=== PATIENT | male | born 1995 | race Caucasian/White ===

== ENCOUNTER 2023-12-11 18:23 | Emergency (ER) | payer SELFPAY ==
[2023-12-11 20:16] VITALS: PULSE 68; RESP 18; TEMP 98.5; O2SAT 97
[2023-12-11] MEDS: MOTRIN 600 MG PO ONE (20:38)
[2023-12-11] MEDS ORDERED: MOTRIN 600 MG ONE (20:38)
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
[2023-12-11 22:03] VITALS: BP 144/82
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
== END 2023-12-11 22:13 | disposition home or self-care (01) ==
LOC: ED 18:23
DX: Z04.1 Encounter for examination and observation following transport accident (principal); S06.0X0A Concussion without loss of consciousness, initial encounter; V59.00XA Driver of pick-up truck or van injured in collision with unspecified motor vehicles in nontraffic accident, initial encounter; J32.0 Chronic maxillary sinusitis; R42 Dizziness and giddiness; R51.9 Headache, unspecified; Z72.0 Tobacco use
CPT/HCPCS: 70450; 99283; A9270-GY